=== PATIENT | male | born 1960 | race Caucasian/White ===

== ENCOUNTER → 2022-10-05 15:31 | Outpatient (BNVA) | payer OTHER, SELFPAY | PROVIDERS: PCP Family Medicine; Visit Provider Nurse Practitioner Family ==

== ENCOUNTER 2022-10-30 05:54 | Outpatient (REF) | payer OTHER, SELFPAY ==
--- NOTE | ~2022-10-30 | FL_ITS ---
EXAMINATION: XR FLUOROSCOPY WITH IMAGES CLINICAL INFORMATION: Sacrococcygeal disorders, not elsewhere classified. COMPARISON: None available. TECHNIQUE: Fluoroscopy Supervised By: Dr. Baires. Fluoroscopy Time: 0.2 min. Cumulative Dose: 244 mGy. DAP: 0.0425 Gycm2. Images: 1. FINDINGS: Image demonstrates needle placement and contrast injection over the left sacroiliac joint. FL/FL guidance in treatment room IMPRESSION: Fluoroscopy guidance for pain management procedure.
== END 2022-10-30 05:55 | disposition home or self-care (01) ==
LOC: CF 05:54
PROVIDERS: Visit Provider Anesthesiology
DX: M53.3 Sacrococcygeal disorders, not elsewhere classified (principal); M51.36 Other intervertebral disc degeneration, lumbar region; M47.816 Spondylosis without myelopathy or radiculopathy, lumbar region; M48.07 Spinal stenosis, lumbosacral region
CPT/HCPCS: 27096

== ENCOUNTER → 2022-11-01 14:44 | Outpatient (BNVA) | payer OTHER, SELFPAY | PROVIDERS: PCP Family Medicine; Visit Provider Nurse Practitioner Family ==

== ENCOUNTER 2022-11-16 06:32 | Day surgery (SDC) | payer OTHER, SELFPAY ==
--- NOTE | 2022-11-15 09:02 | HO.ANESPROP2 ---
Documented by User: Divina Ridley NP 11/15/22 09:02 HPI - Anesthesia Eval Consult details Narrative: 62yo M for Left L3-L4-DRL5 Medial Branch Radiofrequency AB PMFSH Active Problems Active Problems: All Active Problems (Updated 10/05/22 @ 22:15 by CARLOS Sarkar) Sacroiliac joint pain (Acute) Foraminal stenosis of lumbosacral region (Acute) Spondylosis of lumbar region without myelopathy or radiculopathy (Acute) Lumbar degenerative disc disease (Acute) Past Medical History Medical History Cervicalgia Enlarged prostate Low back pain Radiculopathy of cervical region Spondylosis Surgical History Surgical History H/O skin graft Hx of colonoscopy S/P epidural steroid injection Social History Social History Alcohol intake: current Patient Tobacco Use Status: Former Tobacco user Quit Date: >15 yrs ago Use of substances other than those prescribed or required for medical reasons: Yes Substance Use Type: Marijuana Substance Use Frequency: Occasionally Are you DNR?: No Advance Directives: No Advance Directives Information Provided: Yes Meds Allergies Allergy/AdvReac Type Severity Reaction Status Date / Time No Known Allergies Allergy Verified 11/16/22 06:40 Home Medications Medication Instructions Recorded Confirmed Last Taken Type epinephrine 0.3 mg/0.3 mL IM DIRECTED anaphylaxis 10/05/22 Unknown History injection, auto-injector sildenafil 100 mg tablet 100 mg PO DAILY 10/05/22 Unknown History tamsulosin 0.4 mg capsule (Flomax) 0.4 mg PO DAILY 10/05/22 11/16/22 06:00 History Fish Oil PO DAILY 11/16/22 11/09/22 History Exam Exam Date and Time: November 15, [id number] Assessment and Plan Assessment Anesthesia Assessment: Chart Reviewed Documented by User: Shara Caballero MD 11/16/22 07:33 [facility] Past Medical History Medical History Cervicalgia Enlarged prostate Low back pain Radiculopathy of cervical region Spondylosis Family History Family history of problems with anesthesia: No Surgical History Surgical History H/O skin graft Hx of colonoscopy S/P epidural steroid injection History of Problems with Anesthesia: No Social History Social History Alcohol intake: current Patient Tobacco Use Status: Former Tobacco user Quit Date: >15 yrs ago Use of substances other than those prescribed or required for medical reasons: Yes Substance Use Type: Marijuana Substance Use Frequency: Occasionally Are you DNR?: No Advance Directives: No Advance Directives Information Provided: Yes Meds Allergies Allergy/AdvReac Type Severity Reaction Status Date / Time No Known Allergies Allergy Verified 11/16/22 06:40 Home Medications Medication Instructions Recorded Confirmed Last Taken Type epinephrine 0.3 mg/0.3 mL IM DIRECTED anaphylaxis 10/05/22 Unknown History injection, auto-injector sildenafil 100 mg tablet 100 mg PO DAILY 10/05/22 Unknown History tamsulosin 0.4 mg capsule (Flomax) 0.4 mg PO DAILY 10/05/22 11/16/22 06:00 History Fish Oil PO DAILY 11/16/22 11/09/22 History Exam Airway Mallampati Class: II TM Dist: >3cm Neck ROM: Full (hearing aids removed ) Heart: rrr Lungs: cta Assessment and Plan Assessment Anesthesia Assessment: Anesthesia Plan Discussed Final Anesthetic Review Family History of Problems with Anesthesia: No History of Problems with Anesthesia: No NPO: Yes ASA Class: II Final Preanesthetic Review: No Changes in Pt Med Stat, Meds/Allgs Chart Reviewed, Consent Obtained/Reviewed and Anes Risks/Benef Reviewed Patient Risk: Low Procedure Risk: Low Anesthetic Plan Anesthetic Plan: MAC: Disposition: Standard PACU
--- NOTE | ~2022-11-16 | FL_ITS ---
EXAMINATION: XR FLUOROSCOPY WITH IMAGES CLINICAL INFORMATION: Lumbar RFA. COMPARISON: None available. TECHNIQUE: Fluoroscopy Supervised By: Dr. Baires. Fluoroscopy Time: 0.4 minutes. Cumulative Dose: 19.8 mGy. DAP: 5.42 Gycm2. Images: 2. FINDINGS: Images demonstrate probe placement and contrast injection adjacent to the left lateral L3-L4 and L5 vertebrae FL/FL guidance in OR IMPRESSION: Fluoroscopy guidance for pain management procedure
[2022-11-16 06:43] VITALS: BMI 30.3
--- NOTE | 2022-11-16 06:56 | MHC.SHP ---
Pre-Procedural Eval Section A Date of Service: 11/16/22 The patient is an INPATIENT: No Changes since office visit: Yes Patient answered all questions The History & Physical has been completed within 30 days and I have reviewed it.: No Section B Chief Complaint: Spondylosis without myelopathy or radiculopathy Details of Present Illness: as above Relevant Family History (Specify if Yes): No Relevant Social History: Other (specify) Present Medications: None Medical History: No relevant PMH History of Previous Operations: No relevant previous surgery Allergies: Allergies Allergy/AdvReac Type Severity Reaction Status Date / Time No Known Allergies Allergy Verified 11/16/22 06:40 Review of Systems Sugical H&P ROS: Negative: Constitution, Cardiovascular, Respiratory, Neurological, Psychiatric, Hem-Onc, Allergic/Immunologic, Gastrointestinal, Genitourinary, Musculoskeletal, Integumentary, Endocrine and Eyes/Ears/Nose/Throat Exam Surgical H&P Exam: Normal: HEENT, Normal: Heart, Normal: Lungs, Normal: Extremities, Normal: Abdomen, Normal: Skin and Normal: Neurological Plan Diagnosis/Plan: Unchanged I have reviewed the history and physical and performed a pertinent physical examination on my patient. No changes have occurred unless specified. Time Spent With Patient Time: Total time managing care of this patient today ____ minutes.
[2022-11-16 06:58] VITALS: BP 150/89; PULSE 55; RESP 15; TEMP 36.2; O2SAT 99
[2022-11-16] MEDS: Lactated Ringers 1,000 ML 100 ML IVCONT (07:05)
--- NOTE | 2022-11-16 07:06 | W.PM.OPN ---
Operative Note Operative Note Date of Service: 11/16/22 Narrative: RFA L3-L4-DRL5 on the left. Informed consent was explained to the patient. All questions were explained and answered. The patient was taken inside the operating room where he was positioned prone on the operating table. ASA m-rs were applied,? the patient was minimally sedated. Time-out was performed delineating name and of the patient,? correct site, side, the nature of the procedure, patient's allergy, preoperative antibiotic if needed. All operating room staff was participating in OR time-out procedure. The lower back was prepped with ChloraPrep and draped with sterile towels. C-arm was brought over the operating field and sq picture of ? L4, L5 vertebra and S1 AREA were delineated on the screen. Point of interest were delineated as connection of superior articular process of? L4, L5 vertebra on the left with corresponding transverse processes as well as connection of the sacral alae on the left with superior articular process of S1 . ?The projection of the point of interest to the skin were injected with the small amount of local anesthetic lidocaine 2% 1-1.5 cc. After that 18 gauge 100 mm RFA canulas? were driven to the point of interest in oblique fashion. After needles gently contacted the bone the lateral images were obtained and position of the tips of the needles away from the foramina and presumable location of the somatic nerves was verified. The sensory and the? motor tests were performed and no motor response was detected in the patients feet lower legs or thighs. After that? at the point of interests the cannulas? were injected with small amount of ropivacaine 0.5% mixed with lidocaine 1%-1cc?-2cc. 90 seconds after the injection the energy application was performed at 89 degrees Centigrade for 90 second. After first energy application the canullas were rotated 180 degrees and energy application was repeated at the same setting.? Upon completion of the energy applications canullas were removed and sterile bandaids? were applied, The? patient was taken outside of the operating room to recovery room .
[2022-11-16 08:08] VITALS: BP 129/81; PULSE 52; RESP 12; TEMP 36.6; O2SAT 100
--- NOTE | 2022-11-16 08:18 | PM.OP ---
Brief Operative Note Date of Service: 11/16/22 Pre-op diagnosis: spondylosis lumbar without myelopathy or radiculopathy Post-op diagnosis: same Procedure: left side RFA L3-L4 dorsal ramus L5 Implants: none Surgeon: Jai Baires MD Anesthesia: MAC Was an Fuel Cell Builder used for this Procedure?: No Estimated blood loss (mL): 2 Condition: stable Disposition: PACU
[2022-11-16 08:23] VITALS: BP 131/71; PULSE 52; RESP 16; O2SAT 97
[2022-11-16 08:38] VITALS: BP 119/69; PULSE 51; RESP 16; TEMP 36.3; O2SAT 97
== END 2022-11-16 09:15 | disposition home or self-care (01) ==
PROVIDERS: PCP Family Medicine; Visit Provider Anesthesiology
PROC: (CPT 64635; principal; 2022-11-16 07:30)
DX: M47.816 Spondylosis without myelopathy or radiculopathy, lumbar region (principal); M51.36 Other intervertebral disc degeneration, lumbar region; M53.3 Sacrococcygeal disorders, not elsewhere classified; F12.90 Cannabis use, unspecified, uncomplicated; Z87.891 Personal history of nicotine dependence; Z79.899 Other long term (current) drug therapy
CPT/HCPCS: 64635; 64636; J2250; J2795; J3010; J3301

== ENCOUNTER → 2022-12-27 09:00 | Outpatient (BNVA) | payer OTHER, SELFPAY | PROVIDERS: PCP Family Medicine; Visit Provider Nurse Practitioner Family ==

== ENCOUNTER 2022-12-27 09:04 | Outpatient (AMB) | payer OTHER, SELFPAY ==
[2022-12-27 09:01] VITALS: BMI 29.5
--- NOTE | 2022-12-27 09:01 | MHC.OFFVIS ---
Intake Vital Signs 12/27/22 09:01 Height 5 ft 9 in Weight 200 lb BMI 29.5 Intake Visit Reasons: s/p L. 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 Baires. Patient reports slightly over 90% ongoing pain relief since the procedure with significant improvement in his daily functioning, activities, better sleep and better social interactions. Patient reports activities that previously were triggering his pain, are no longer present. Patient reports he was able to hike for 10 hours and was not in pain as before. Denies any recent cough, cold, infection, fever or other significant changes in medical history since last office visit. Patient denies any bladder or bowel incontinence or saddle anesthesia. PRIOR: Patient presents today to assess response to Left Diagnostic SIJ injection on 10/30/22. Patient reports 90% hours pain relief for 6 hours, at 4-5 hours after procedure he reports 100% pain relief. Patient reports improvement in his daily activities, better exercise tolerance and better sleep. Review of additional [facility] records and procedural notes have confirmed that patient underwent Left (not right) L4-L5 and L5-S1 facet joints x2 with positive 80% pain relief for 10-24 hours. Patient continues to endorse low axial back pain aggravated with lumbar extension and movements which have been minimally faded out with SIJ injections. He realizes his symptoms are overlapping between 2 pain generators, facet mediated and SIJ mediated pain, and he is able to compare the differences in pain relief with each diagnostic injections. Patient states prolonged sitting and sleeping positions have more improved with diagnostic SIJ injection. He continues to stay active and exercise daily through bicycling, incline treadmill and stretching exercises. Patient is interested to proceed with left lumbosacral medial branch RFA procedure as next steps to manage his symptoms. Patient denies any fever, bladder or bowel incontinence or saddle anesthesia. PRIOR: Patient is a pleasant 62 years old male presents today with chronic lumbosacral pain and left side lower back stenosis. He reports this pain has been present for almost 2 years and has been worsening over the past year. Patient has been referred to us by Dr. Davis at [facility] for right sided L3-L4-L5 medial branches RFA procedure given greater than 80% pain improvement x2 for short duration. Patient reports first diagnostic injection provided him over 80% pain relief for 24 hours and second diagnostic injection provided him 80% pain relief for 10 hours. Patient presents with low back pain extending to his left side and into left gluteal with mild to moderate tenderness over left sacroiliac joint area. Provocative maneuvers only mildly elicited his SIJ discomfort. He reports low back pain on exertion with lumbar flexion and extension and aggravated by prolonged walking or standing. Pain affects his sleep and daily activities. He denies any pain with sitting. At times, his lower back pain will radiate into his left lower extremity laterally and posteriorly with numbness and tingling in his left foot. Reports receiving injections over 2 months ago for his left sided radicular pain and he gained 3 weeks of pain relief. Despite the pain, patient continues to stay active, walks and hikes daily. He has tried Tylenol, Ibuprofen, ice and heat therapy, physical therapy, yoga, acupuncture, stretching exercises, massage and chiropractic manipulation with minimal symptoms improvement. Denies any abdominal or groin pain, weakness, bladder or bowel incontinence or saddle anesthesia. Patient reports his insurance was approved for RFA procedure but the [facility] surgical center has refused to allow him to proceed with RFA due to patient driving home after cervical epidural steroid injection which he was very apologetic about and knows that he needs a ride after such procedures. I will request procedure notes from [facility] to confirm laterality of injections that were performed prior to proceeding with RFA as well as consider diagnostic left sacroiliac joint injection. Per [facility] referral notes: [facility] Medical History Cervicalgia Enlarged prostate Low back pain Radiculopathy of cervical region Spondylosis Surgical History H/O skin graft Hx of colonoscopy S/P epidural steroid injection Social History Alcohol intake: current Patient Tobacco Use Status: Former Tobacco user Quit Date: >15 yrs ago Substance Use Type: Marijuana Review of Systems Const All systems reviewed & are unremarkable except as noted in HPI and below ENT Reports Normal hearing present Neuro Reports Normal hearing present and Denies confusion Psych Denies confusion Physical Exam Vital Signs: BMI result Body Mass Index 29.5 Const General: cooperative, alert and awake; No confusion Orientation/consciousness: patient oriented x3 and No confusion Resp Effort & Inspection: able to speak in complete sentences, no audible wheezes and no cough Neuro General: patient oriented x3 and No confusion Cranial nerves: Yes Normal hearing present Cognition (Neuro): normal cognition Psych Mental Status: mental status grossly normal Speech and movement: Clear speech present Affect: normal affect Attitude: cooperative Thought process: Normal thought process present Thought content: Normal thought content present and No Depressive thoughts present Insight: Good insight present (Psych) Judgement: Good judgement present (Psych) Assessment & Plan Assessment & Plan (1) Lumbar degenerative disc disease: Code(s): M51.36 - Other intervertebral disc degeneration, lumbar region (2) Spondylosis of lumbar region without myelopathy or radiculopathy: Code(s): M47.816 - Spondylosis without myelopathy or radiculopathy, lumbar region Plan Patient is status post Left L3-L4 DRL5 MB RFA on 11/16/[address] Baires with good results, ongoing 90% pain relief and significant improvement in his daily activities and functioning, sleep and social interactions. Discussed longevity of initial RFA for pain relief vs repeated RFA in future. Patient will monitor his symptoms and notify our office for any return of pain sooner than 12 months. All questions and concerns have been answered and patient agreed with the plan. Follow up as needed. I hereby testify that I spent 7 minutes in conversation with this patient as well as with planning and coordinating care for this patient and organizing this note. Telehealth Telehealth Location of provider rendering services: practice address Location of patient: address on file Patient Identification confirmed using: Name, : Yes Telehealth method: voice only Patient verbally consented to treatment: Yes Patient verbally consented to billing insurance company: Yes Patient informed of any privacy concerns related to visit: Yes Minutes spent on Phone/Video with Pt.: 7 Coding Level of Care Code Tele Est Pt Level 3 (27789) Diagnoses Lumbar degenerative disc disease M51.36 Spondylosis of lumbar region without myelopathy or radiculopathy M47.816
== END 2022-12-27 09:07 | disposition home or self-care (01) ==
PROVIDERS: PCP Family Medicine; Visit Provider Nurse Practitioner Family
DX: M51.36 Other intervertebral disc degeneration, lumbar region (principal); M47.816 Spondylosis without myelopathy or radiculopathy, lumbar region
CPT/HCPCS: 99213